=== PATIENT | male | born 1975 ===

== ENCOUNTER 2024-10-25 13:37 | Day surgery (SDC) | payer OTHER ==
[~2024-10-25] VITALS: Ht 177.8 cm; Wt 94.0 kg
[~2024-10-25 13:37] MED LIST: Atropine Sulfate 0.1 MG/ML 10ML SYR ONE; Glycopyrrolate 0.2 MG/ML 1MLVIAL ONE; Lactated Ringer's 1,000 ML IV ONE; Lidocaine 2% 5 ML SDV ONE; Lidocaine HCl/Pf 1% 5 ML VIAL ONE; Methylene Blue 1% 100 MG/10 ML VIAL ONE; Ondansetron HCl 2 MG / ML 2ML Vial ONE; ePHEDrine Sulfate 50 MG/ML 1ML Injection ONE; propofoL 50 ML IV ONE
[2024-10-25] MEDS ORDERED: Lactated Ringer's 1,000 ML IV ONE (15:37)
== END 2024-10-25 16:54 | disposition home or self-care (01) ==
LOC: ORSCSDS 13:37
PROVIDERS: Internal Medicine Gastroenterology
PROC: 0DJD8ZZ Inspection of Lower Intestinal Tract, Via Natural or Artificial Opening Endoscopic (ICD-10-PCS; principal; 2024-10-25 15:15)
DX: K62.5 Hemorrhage of anus and rectum (principal); R19.5 Other fecal abnormalities
CPT/HCPCS: J0461; J2003; J2405; J2704; J7120; Q9968